=== PATIENT | female | born 1960 | race Caucasian/White ===

== ENCOUNTER 2016-11-24 06:37 | Emergency (ER) | payer OTHER, BC ==
[~2016-11-24] VITALS: Ht 167.6 cm; Wt 87.5 kg
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
[2016-11-24 08:41] VITALS: BP 129/79
== END 2016-11-24 08:30 | disposition home or self-care (01) ==
LOC: ER 06:37
DX: S09.90XA Unspecified injury of head, initial encounter (principal); M54.2 Cervicalgia; Z88.1 Allergy status to other antibiotic agents; V67.0XXA Driver of heavy transport vehicle injured in collision with fixed or stationary object in nontraffic accident, initial encounter; Y93.89 Activity, other specified; Y92.89 Other specified places as the place of occurrence of the external cause; Y99.8 Other external cause status
CPT/HCPCS: 70450; 99284-25

== ENCOUNTER → 2017-02-23 | Outpatient (CLI) | payer OTHER, BC ==
--- NOTE | 2017-02-23 10:41 | RAD ---
Examination: MRI of the left knee without contrast. HISTORY History of anteromedial knee pain for 6 months. COMPARISON None available. TECHNIQUE Multiplanar, multisequence MR imaging of the left knee was performed without contrast Findings: The anterior cruciate ligament, posterior cruciate ligament appear intact. There is increased signal identified in the peripheral portion of the body of the medial meniscus best visualized on series 8 image #9 likely tear of the medial meniscus. The lateral meniscus demonstrates minimal blunting in the body of the lateral meniscus, best visualized on series 6 image #6 probable small radial tear. The extensor mechanism is intact. The medial collateral ligament is intact. The lateral collateral ligamentous complex including the fibular collateral ligament, biceps femoris tendon, popliteus tendon grossly appears intact. There is deep fissuring of cartilage identified in the medial compartment with underlying mild trabecular edema in the tibial plateau and medial femoral condyle. There is mild fissuring of cartilage identified in the lateral compartment. There is deep fissuring of cartilage identified in the patella and trochlea with small subchondral cystic changes identified in the medial patellar facet. Small knee joint effusion with a small non leaking popliteal cyst identified. The medial retinaculum, lateral retinaculum appear intact. There is moderate joint space loss identified in the medial compartment. Mild joint space loss identified in the lateral, patellofemoral compartment IMPRESSION - Tear of the medial meniscus. - Probable tiny radial tear of the body of the lateral meniscus. - Grade 3 chondromalacia medial compartment. - Small knee joint effusion with a small popliteal cyst. - Tricompartmental degenerative changes most in the medial compartment. Electronically signed by: Rell Thomas (Feb 23, 2017 10:39:55)
== END | disposition home or self-care (01) ==
LOC: MRI 10:28
PROVIDERS: ATTEND Family Medicine
DX: M25.462 Effusion, left knee (principal); S83.419A Sprain of medial collateral ligament of unspecified knee, initial encounter; M19.90 Unspecified osteoarthritis, unspecified site; X58.XXXA Exposure to other specified factors, initial encounter; Y93.89 Activity, other specified; Y92.89 Other specified places as the place of occurrence of the external cause; Y99.8 Other external cause status
CPT/HCPCS: 73721